=== PATIENT | female | born 1950 | race Caucasian/White ===

== ENCOUNTER 2019-01-16 09:37 | Emergency (ER) | payer BC, OTHER ==
[2019-01-16] MEDS ORDERED: methylPREDNISolone SOD SUCC 40 MG/ML VIAL IV ONE (11:30)
[2019-01-16] MEDS ORDERED: LEVOFLOXACIN 250MG /D5W 250 MG in PREMIXED 1 EACH IV ONE (11:30)
== END 2019-01-16 13:03 | disposition home or self-care (01) ==
LOC: ER 09:37
DX: Z75.3 Unavailability and inaccessibility of health-care facilities (principal)